=== PATIENT | male | born 1945 | race Caucasian/White ===

== ENCOUNTER 2020-09-05 09:06 | Emergency (ER) | payer BC ==
[~2020-09-05] VITALS: Ht 198.1 cm; Wt 105.0 kg
[2020-09-05] MEDS ORDERED: HYDROCO/APAP1 TA9 PO (11:22)
[2020-09-05 11:31] VITALS: BP 138/64
== END 2020-09-05 11:40 | disposition home or self-care (01) | DRG 562 ==
LOC: ED 09:06
PROC: 2W38X1Z Immobilization of Right Upper Extremity using Splint (ICD-10-PCS; principal; 2020-09-05)
DX: S52.121A Displaced fracture of head of right radius, initial encounter for closed fracture (principal); M79.632 Pain in left forearm; M25.522 Pain in left elbow; M25.532 Pain in left wrist; N18.6 End stage renal disease; I12.0 Hypertensive chronic kidney disease with stage 5 chronic kidney disease or end stage renal disease; W01.0XXA Fall on same level from slipping, tripping and stumbling without subsequent striking against object, initial encounter; Y92.009 Unspecified place in unspecified non-institutional (private) residence as the place of occurrence of the external cause; Z99.2 Dependence on renal dialysis; Z95.1 Presence of aortocoronary bypass graft

== ENCOUNTER 2020-09-13 06:36 | Emergency (ER) | payer MEDICARE ==
[~2020-09-13] VITALS: Ht 198.1 cm; Wt 122.0 kg
[~2020-09-13 06:36] MED LIST: HYDROCO/APAP1 TA9 PO
[2020-09-13 07:31] LABS: IMMATURE GRANULOCYTES 0.4 % (0.0-5.0); MEAN CORPUSCULAR HGB CONC 32.3 g/dL CAL (32.0-36.0); NEUT# 9.95 thou/uL (1.82-7.42); RED BLOOD COUNT 2.97 mill/uL (4.70-6.10); RED CELL DISTRI WIDTH 13.9 % (11.5-15.5)
[2020-09-13 07:46] LABS: HEMATOCRIT 30.3 % (39.0-50.0); HEMOGLOBIN 9.8 g/dl (14.0-18.0)
[2020-09-13] MEDS ORDERED: ASPIRIN81 MG PO (07:55)
[2020-09-13] MEDS ORDERED: ISOSORB MONO60 M1 PO (07:56)
[2020-09-13] MEDS ORDERED: GABAPENTIN100 MG PO (07:56)
[2020-09-13] MEDS ORDERED: ATORVASTATIN CA80 MG PO (07:57)
[2020-09-13] MEDS ORDERED: TAMSULOSIN HCL0.4 MG PO (07:57)
[2020-09-13] MEDS ORDERED: NIFEDIPINE30 MG PO (07:57)
[2020-09-13] MEDS ORDERED: KAPSPARGO SPRIN25 MG (07:58)
[2020-09-13] MEDS ORDERED: ALLOPURINOL100 MG PO (07:58)
[2020-09-13] MEDS ORDERED: CILOSTAZOL50 MG PO (07:58)
[2020-09-13] MEDS ORDERED: RENVELA800 MG PO (07:59)
[2020-09-13] MEDS ORDERED: CLOPIDOGREL75 MG PO (07:59)
[2020-09-13] MEDS ORDERED: DIALYVITE800 MG PO (07:59)
[2020-09-13 08:06] LABS: ALBUMIN 4.1 g/dL (3.2-5.0); TOTAL PROTEIN 7.5 g/dL (6.3-8.2)
[2020-09-13 08:15] LABS: CREATININE 12.8 mg/dL (0.7-1.3)
[2020-09-13 10:30] VITALS: BP 131/62
== END 2020-09-13 10:30 | disposition short-term general hospital (02) ==
LOC: ED 06:36
PROVIDERS: Emergency Medicine
DX: A41.9 Sepsis, unspecified organism (principal); J18.9 Pneumonia, unspecified organism; I48.91 Unspecified atrial fibrillation; I12.0 Hypertensive chronic kidney disease with stage 5 chronic kidney disease or end stage renal disease; N18.6 End stage renal disease; Z99.2 Dependence on renal dialysis; I25.10 Atherosclerotic heart disease of native coronary artery without angina pectoris; Z95.1 Presence of aortocoronary bypass graft; Z95.820 Peripheral vascular angioplasty status with implants and grafts; Z20.822 Contact with and (suspected) exposure to COVID-19